=== PATIENT | male | born 1980 | race African-American/Black ===

== ENCOUNTER 2021-12-16 22:14 | Emergency (ER) | payer OTHER ==
[2021-12-16 22:39] LABS: HEMOGLOBIN 15.7 gm/dl (14.0-17.5); RED BLOOD COUNT 5.24 M/UL (4.20-5.50); WHITE BLOOD COUNT 5.5 K/UL (4.5-11.0)
[2021-12-16 22:59] LABS: BUN/CREATININE RATIO 11 (0-10)
[2021-12-17] MEDS ORDERED: ZOFRAN 4 MG TAB4 MG PO (00:09)
[2021-12-17] MEDS ORDERED: ATROVENT-HFA12.9 GM INH (00:09)
[2021-12-17] MEDS ORDERED: PAXLOVID CO-PA1 EACH PO (00:18)
== END 2021-12-17 00:05 | disposition home or self-care (01) ==
LOC: ER1 22:14
PROVIDERS: Physician Assistant Medical
DX: U07.1 COVID-19 (principal); F17.210 Nicotine dependence, cigarettes, uncomplicated
CPT/HCPCS: 0240U; 71045; 80053; 82550; 82553; 83880; 84484; 85025; 85379; 93005; 96372; 99285; J1100